=== PATIENT | male | born 1930 | race Caucasian/White ===

== ENCOUNTER 2017-01-05 13:43 | Inpatient (IN) | payer MEDICARE, OTHER ==
[~2017-01-05] VITALS: Ht 172.7 cm; Wt 80.0 kg
[2017-01-05] MEDS ORDERED: IOHEXOL 350 MG/ML 10 ML VIAL (for RAD DIAG) IVCONTRAST ONE (13:44)
[2017-01-05 14:00] VITALS: BP 142/69; PULSE 62; RESP 16; TEMP 98.4; O2SAT 98
[2017-01-05 15:20] LABS: AUTOMATED NEUTROPHIL # 4.4 TH/MM3 (1.8-7.7); BASOPHIL % 0.4 % (0.0-2.0); EOSINOPHIL % 0.6 % (0.0-4.0); HEMATOCRIT 33.1 % (39.0-51.0); HEMO FLAGS DIFF FINAL; LYMPH % 28.7 % (9.0-44.0); LYMPHOCYTE # 2.1 TH/MM3 (1.0-4.8); MEAN CELL VOLUME 104.3 FL (80.0-100.0); MEAN CORPUSCULAR HEMOGLOBIN 34.9 PG (27.0-34.0); MEAN CORPUSCULAR HGB CONC 33.5 % (32.0-36.0); MONO % 9.4 % (0.0-8.0); NEUT % 60.9 % (16.0-70.0); PLATELET COUNT 192 TH/MM3 (150-450); RED BLOOD COUNT 3.18 MIL/MM3 (4.50-5.90); RED CELL DISTRIBUTION WIDTH 13.6 % (11.6-17.2); WHITE BLOOD COUNT 7.3 TH/MM3 (4.0-11.0)
--- NOTE | 2017-01-05 15:22 | PD ---
Data Data Last Documented VS Vital Signs Date Time Temp Pulse Resp B/P (MAP) Pulse Ox O2 Delivery O2 Flow Rate FiO2 01/05/17 14:00 98.4 62 16 142/69 (93) 98 01/05/17 14:00 Room Air Orders Orders Complete Blood Count With Diff (01/05/17 14:05) Comprehensive Metabolic Panel (01/05/17 14:05) Lipase (01/05/17 14:05) Urinalysis - C+S If Indicated (01/05/17 14:05) Ct Abd/Pel W Iv Contrast(Rout) (01/05/17 14:05) Iv Access Insert/Monitor (01/05/17 14:05) Ecg Monitoring (01/05/17 14:05) Oximetry (01/05/17 14:05) Ed Poc Ultrasound (01/05/17 ) Labs Laboratory Tests Test 01/05/17 14:30 MDM Supervised Visit with GENEVIEVE: Yes Narrative Course Ultrasound-guided IV: 20-gauge IV was inserted in the right antecubital fossa under ultrasound guidance. Ultrasound confirmed placement. Ambar Estrada MD Jan 05, 2017 15:22
[2017-01-05 15:35] LABS: ALT (GPT) 28 U/L (12-78); ANION GAP 7 MEQ/L (5-15); AST (GOT) 22 U/L (15-37); BICARBONATE 24.4 MEQ/L (21.0-32.0); BLOOD UREA NITROGEN 12 MG/DL (7-18); CHLORIDE 105 MEQ/L (98-107); GLOMERULAR FILTRATION RATE 57 ML/MIN (>89); POTASSIUM 3.6 MEQ/L (3.5-5.1); SODIUM (NA) 136 MEQ/L (136-145)
[2017-01-05 15:37] LABS: ALKALINE PHOSPHATASE 58 U/L (45-117); TOTAL BILIRUBIN ADULT 0.3 MG/DL (0.2-1.0)
[2017-01-05] MEDS ORDERED: HYDR-3799 PO (15:40)
[2017-01-05] MEDS ORDERED: DOXE10CO2 PO (15:40)
[2017-01-05] MEDS ORDERED: ZOLO100T PO (15:40)
[2017-01-05] MEDS ORDERED: LACT10SO PO (15:40)
[2017-01-05] MEDS ORDERED: SIMV20TA PO (15:40)
[2017-01-05] MEDS ORDERED: DICY10 PO (15:40)
[2017-01-05] MEDS ORDERED: METO-309 PO (15:40)
[2017-01-05] MEDS ORDERED: COZA100T PO (15:40)
[2017-01-05] MEDS ORDERED: BUSP5TAB PO (15:40)
[2017-01-05] MEDS ORDERED: MELA10TA4 PO (15:40)
[2017-01-05] MEDS ORDERED: NU-I150C PO (15:40)
[2017-01-05] MEDS ORDERED: ISOS20TA PO (15:40)
[2017-01-05] MEDS ORDERED: PAXI10TA2 PO (15:40)
[2017-01-05] MEDS ORDERED: ALLO100T PO (15:40)
[2017-01-05] MEDS ORDERED: NORC5TAB PO (15:40)
[2017-01-05] MEDS ORDERED: METH2.5T PO (15:40)
[2017-01-05] MEDS ORDERED: OMEP20TA PO (15:40)
[2017-01-05] MEDS ORDERED: ACET-822 PO (15:40)
[2017-01-05] MEDS ORDERED: DULC5TAB PO (15:40)
[2017-01-05] MEDS ORDERED: LOPE-1 PO (15:40)
[2017-01-05] MEDS ORDERED: SIME125T PO (15:40)
[2017-01-05] MEDS ORDERED: DIVA250ER PO (15:40)
[2017-01-05] MEDS ORDERED: PLAV75TA29 PO (15:40)
[2017-01-05] MEDS ORDERED: LORA-474 PO ×2 (15:40)
[2017-01-05] MEDS ORDERED: NAME10TA PO (15:40)
[2017-01-05] MEDS ORDERED: MULTTAB67 PO (15:40)
[2017-01-05] MEDS ORDERED: ZANA2CAP PO (15:40)
[2017-01-05] MEDS ORDERED: PLAQ200T PO (15:41)
--- NOTE | 2017-01-05 15:54 | PD ---
HPI Chief Complaint: Abdominal Pain Time Seen by Provider: 14:08 Travel History International Travel<30 days: No Contact w/Intl Traveler<30days: No Traveled to known affect area: No History of Present Illness HPI Patient is a 86-year-old male presenting from the group home facility for evaluation of abdominal pain as well as for psychiatric evaluation. Patient reports a history of abdominal issues. He states he has not had a bowel movement in 4 days. Patient is also requesting to be evaluated by a psychiatrist due to worsening depression. Discussed with long-term nurse who said the patient gets irate and is very demanding. His nurse reports that one month ago he consumed a bottle of Tylenol that they were unaware that he had in his room. Patient reported to me that it was an attempt at suicide due to his pain. Patient's nurse states that he is obsessed with his bowels he will complain of constipation and then be given medication and minimal complaint of diarrhea. PFSH Past Medical History Anemia: Yes Arthritis: Yes (RA) Anxiety: Yes Depression: Yes Dementia: Yes Gastrointestinal Disorders: Yes (CONSTIPATION) GERD: Yes Gout: Yes Hypertension: Yes Musculoskeletal: Yes (WEAKNESS) Psychiatric: Yes (ATTEMPTED OD) Seizures: Yes (EPILEPSY ) Triglycerides - High: Yes Social History Alcohol Use: No Tobacco Use: No Substance Use: No Allergies-Medications (Allergen,Severity, Reaction): Coded Allergies: aspirin (Verified Allergy, Unknown, 01/05/17) atorvastatin (Verified Allergy, Unknown, 01/05/17) metronidazole (Verified Allergy, Unknown, 01/05/17) milk (Verified Allergy, Unknown, 01/05/17) quinapril (Verified Allergy, Unknown, 01/05/17) Reported Meds & Prescriptions Reported Meds & Active Scripts Active Reported Plaquenil (Hydroxychloroquine Sulfate) 200 Mg Tab 800 Mg PO DAILY Take with food Depakote ER (Divalproex Sodium) 250 Mg Hossein 250 Mg PO DAILY Simvastatin 20 Mg Tab 20 Mg PO HS Cozaar (Losartan Potassium) 100 Mg Tab 100 Mg PO DAILY Allopurinol 100 Mg Tab 100 Mg PO DAILY Plavix (Clopidogrel Bisulfate) 75 Mg Tab 75 Mg PO DAILY Isosorbide Mononitrate 20 Mg Tab 40 Mg PO DAILY Take 2 doses 7 hours apart. Methotrexate 2.5 Mg Tab 7.5 Mg PO TUESDAY Doxepin Liq (Doxepin HCl) 10 Mg/Ml Conc 5 Mg PO HS Tylenol Extra Strength (Acetaminophen) 500 Mg Tablet 500 Mg PO Q6HR PRN Lopressor (Metoprolol Tartrate) 50 Mg Tab 50 Mg PO BID Ativan (Lorazepam) 1 Mg Tab 2 Mg PO HS Ativan (Lorazepam) 1 Mg Tab 1 Mg PO BID Melatonin 10 Mg Tablet 10 Mg PO HS Imodium A-D (Loperamide HCl) 2 Mg Capsule 2 Mg PO Q8HR PRN Gas-X (Simethicone) 125 Mg Tab.chew 125 Mg PO Q8HR PRN Omeprazole 20 Mg Tab 20 Mg PO DAILY Lactulose Liq (Lactulose) 10 Gm/15 Ml Soln 30 Ml PO BID Nu-Iron 150 (Polysaccharide Iron Complex) 150 Mg Iron Cap 150 Mg PO DAILY Zanaflex (Tizanidine HCl) 2 Mg Cap 2 Mg PO BID Bentyl (Dicyclomine HCl) 10 Mg Cap 20 Mg PO QID Namenda (Memantine) 10 Mg Tab 10 Mg PO BID Dulcolax DR (Bisacodyl) 5 Mg Tabdr 5 Mg PO EVERY OTHER DAY Buspirone (Buspirone HCl) 5 Mg Tab 5 Mg PO QID Zoloft (Sertraline HCl) 100 Mg Tab 100 Mg PO DAILY Hydralazine HCl 25 Mg Tablet 25 Mg PO TID Paxil (Paroxetine HCl) 10 Mg Tab 10 Mg PO DAILY Multiple Vitamin 1 Tab 1 Tab PO DAILY [place] (Hydrocodone-Acetaminophen) 5-325 mg Tab 1 Tab PO BID Review of Systems Except as stated in HPI: all other systems reviewed are Neg Gastrointestinal: Positive: Abdominal Pain, Constipation Psychiatric: Positive: Depression, Suicidal Ideations Physical Exam Narrative GENERAL: Well-developed, well-nourished, alert male. Resting comfortably in no acute distress. SKIN: Warm and dry. HEAD: Atraumatic. Normocephalic. EYES: Pupils equal and round. No scleral icterus. No injection or drainage. ENT: No nasal bleeding or discharge. Mucous membranes pink and moist. NECK: Trachea midline. No JVD. CARDIOVASCULAR: Regular rate and rhythm. RESPIRATORY: No accessory muscle use. Clear to auscultation. Breath sounds equal bilaterally. GASTROINTESTINAL: Abdomen soft, mildly tender in right upper and lower quadrants , nondistended. Hepatic and splenic margins not palpable. No rebound, no guarding. Positive bowel sounds. MUSCULOSKELETAL: Extremities without clubbing, cyanosis, or edema. No obvious deformities. NEUROLOGICAL: Awake and alert. No obvious cranial nerve deficits. Motor grossly within normal limits. Five out of 5 muscle strength in the arms and legs. Normal speech. PSYCHIATRIC: Appropriate mood and affect; insight and judgment normal. Data Data Last Documented VS Vital Signs Date Time Temp Pulse Resp B/P (MAP) Pulse Ox O2 Delivery O2 Flow Rate FiO2 01/05/17 14:00 98.4 62 16 142/69 (93) 98 01/05/17 14:00 Room Air Orders Orders Complete Blood Count With Diff (01/05/17 14:05) Comprehensive Metabolic Panel (01/05/17 14:05) Lipase (01/05/17 14:05) Urinalysis - C+S If Indicated (01/05/17 14:05) Ct Abd/Pel W Iv Contrast(Rout) (01/05/17 14:05) Iv Access Insert/Monitor (01/05/17 14:05) Ecg Monitoring (01/05/17 14:05) Oximetry (01/05/17 14:05) Ed Poc Ultrasound (01/05/17 ) Psych Screen (01/05/17 15:50) Iohexol 350 Inj (Omnipaque 350 Inj) (01/05/17 13:44) Diet Heart Healthy (01/05/17 Dinner) Labs Laboratory Tests Test 01/05/17 14:30 01/05/17 17:00 White Blood Count 7.3 TH/MM3 Red Blood Count 3.18 MIL/MM3 Hemoglobin 11.1 GM/DL Hematocrit 33.1 % Mean Corpuscular Volume 104.3 FL Mean Corpuscular Hemoglobin 34.9 PG Mean Corpuscular Hemoglobin Concent 33.5 % Red Cell Distribution Width 13.6 % Platelet Count 192 TH/MM3 Mean Platelet Volume 7.6 FL Neutrophils (%) (Auto) 60.9 % Lymphocytes (%) (Auto) 28.7 % Monocytes (%) (Auto) 9.4 % Eosinophils (%) (Auto) 0.6 % Basophils (%) (Auto) 0.4 % Neutrophils # (Auto) 4.4 TH/MM3 Lymphocytes # (Auto) 2.1 TH/MM3 Monocytes # (Auto) 0.7 TH/MM3 Eosinophils # (Auto) 0.0 TH/MM3 Basophils # (Auto) 0.0 TH/MM3 CBC Comment DIFF FINAL Differential Comment Blood Urea Nitrogen 12 MG/DL Creatinine 1.21 MG/DL Random Glucose 98 MG/DL Total Protein 6.8 GM/DL Albumin 3.3 GM/DL Calcium Level 8.8 MG/DL Alkaline Phosphatase 58 U/L Aspartate Amino Transf (AST/SGOT) 22 U/L Alanine Aminotransferase (ALT/SGPT) 28 U/L Total Bilirubin 0.3 MG/DL Sodium Level 136 MEQ/L Potassium Level 3.6 MEQ/L Chloride Level 105 MEQ/L Carbon Dioxide Level 24.4 MEQ/L Anion Gap 7 MEQ/L Estimat Glomerular Filtration Rate 57 ML/MIN Lipase 210 U/L Urine Color LIGHT-YELLOW Urine Turbidity CLEAR Urine pH 6.0 Urine Specific [place] 1.006 Urine Protein NEG mg/dL Urine Glucose (UA) NEG mg/dL Urine Ketones NEG mg/dL Urine Occult Blood NEG Urine Nitrite NEG Urine Bilirubin NEG Urine Urobilinogen LESS THAN 2.0 MG/DL Urine Leukocyte Esterase NEG Urine RBC 1 /hpf Urine WBC LESS THAN 1 /hpf Microscopic Urinalysis Comment CULT NOT INDICATED MDM Medical Decision Making Medical Screen Exam Complete: Yes Emergency Medical Condition: Yes Interpretation(s) Last Impressions Abdomen/Pelvis CT 01/05/17 1405 Signed Impressions: Service Date/Time: Thursday, January 05, 2017 16:01 - CONCLUSION: 1. 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 2. Bilateral renal cortical cysts. One of the cysts in the lower pole of the left kidney contains a fluid/fluid level possibly representing a hemorrhagic or proteinaceous component. 3. Bilateral inguinal and umbilical hernias all contain fat. 4. Postsurgical changes with findings of prior prostatectomy and pelvic sidewall node dissection. Surgical clips in the region of the adductor muscles of the right thigh. 5. Hepatic cysts . John Bergeron MD Laboratory Tests Test 01/05/17 14:30 01/05/17 17:00 White Blood Count 7.3 TH/MM3 Red Blood Count 3.18 MIL/MM3 Hemoglobin 11.1 GM/DL Hematocrit 33.1 % Mean Corpuscular Volume 104.3 FL Mean Corpuscular Hemoglobin 34.9 PG Mean Corpuscular Hemoglobin Concent 33.5 % Red Cell Distribution Width 13.6 % Platelet Count 192 TH/MM3 Mean Platelet Volume 7.6 FL Neutrophils (%) (Auto) 60.9 % Lymphocytes (%) (Auto) 28.7 % Monocytes (%) (Auto) 9.4 % Eosinophils (%) (Auto) 0.6 % Basophils (%) (Auto) 0.4 % Neutrophils # (Auto) 4.4 TH/MM3 Lymphocytes # (Auto) 2.1 TH/MM3 Monocytes # (Auto) 0.7 TH/MM3 Eosinophils # (Auto) 0.0 TH/MM3 Basophils # (Auto) 0.0 TH/MM3 CBC Comment DIFF FINAL Differential Comment Blood Urea Nitrogen 12 MG/DL Creatinine 1.21 MG/DL Random Glucose 98 MG/DL Total Protein 6.8 GM/DL Albumin 3.3 GM/DL Calcium Level 8.8 MG/DL Alkaline Phosphatase 58 U/L Aspartate Amino Transf (AST/SGOT) 22 U/L Alanine Aminotransferase (ALT/SGPT) 28 U/L Total Bilirubin 0.3 MG/DL Sodium Level 136 MEQ/L Potassium Level 3.6 MEQ/L Chloride Level 105 MEQ/L Carbon Dioxide Level 24.4 MEQ/L Anion Gap 7 MEQ/L Estimat Glomerular Filtration Rate 57 ML/MIN Lipase 210 U/L Urine Color LIGHT-YELLOW Urine Turbidity CLEAR Urine pH 6.0 Urine Specific [place] 1.006 Urine Protein NEG mg/dL Urine Glucose (UA) NEG mg/dL Urine Ketones NEG mg/dL Urine Occult Blood NEG Urine Nitrite NEG Urine Bilirubin NEG Urine Urobilinogen LESS THAN 2.0 MG/DL Urine Leukocyte Esterase NEG Urine RBC 1 /hpf Urine WBC LESS THAN 1 /hpf Microscopic Urinalysis Comment CULT NOT INDICATED Vital Signs Date Time Temp Pulse Resp B/P (MAP) Pulse Ox O2 Delivery O2 Flow Rate FiO2 01/05/17 14:00 98.4 62 16 142/69 (93) 98 01/05/17 14:00 16 01/05/17 14:00 98 Room Air Differential Diagnosis Mood disorder versus dementia versus obstruction versus constipation versus depression versus metabolic abnormality versus other Narrative Course Patient is a 86-year-old male presenting for abdominal pain and for psychiatric evaluation secondary to depression and suicidal ideation. Vital signs are stable, labs and imaging ordered and pending. Mental health screening discussed with the patient. Psychiatric screen ordered. CT scan abdomen and pelvis shows diverticulosis the descending and sigmoid colon without diverticulitis. Bilateral renal cortical cysts. One of the systems lower pole of the left kidney contains a fluid fluid level possibly represent a hemorrhagic or proteinaceous component. Abdomen reviewed, no acute findings identified. Urinalysis is unremarkable. Patient will be medically cleared for psychiatric evaluation at this time. Diagnosis Primary Impression: Medical clearance for psychiatric admission Additional Impression: Abdominal pain Qualified Codes: R10.9 - Unspecified abdominal pain Condition: Stable Livier Moreno Jan 05, 2017 15:54
--- NOTE | 2017-01-05 16:36 | RADRPT ---
EXAM DATE/TIME: 01/05/2017 16:01 [facility] COMPARISON: No previous studies available for comparison. INDICATIONS : Abdomen pain,constipation. IV CONTRAST: 94 cc Omnipaque 350 (iohexol) IV ORAL CONTRAST: No oral contrast ingested. RADIATION DOSE: 10.03 CTDIvol (mGy) MEDICAL HISTORY : Seizures. Hyperthyroidism. SURGICAL HISTORY : None. ENCOUNTER: Initial ACUITY: 4 - 6 days PAIN SCALE: 4/10 LOCATION: Abdomen TECHNIQUE: Volumetric scanning of the abdomen and pelvis was performed. Using automated exposure control and ad justment of the mA and/or kV according to patient size, radiation dose was kept as low as reasonably achievable to obtain optimal diagnostic quality images. DICOM format image data is available electro nically for review and comparison. FINDINGS: LOWER LUNGS: The visualized lower lungs are clear. LIVER: There are 2 low density areas anteriorly in the liver characteristic of benign cysts. There is no di lation of the biliary tree. No calcified gallstones. SPLEEN: Normal size without lesion. PANCREAS: Within normal limits. KIDNEYS: Multiple bilateral renal cortical cysts. Fluid fluid level on one of the lower pole cyst on the left may represent a proteinaceous or hemorrhagic component. No hydronephrosis ADRENAL GLANDS: Within normal limits. VASCULAR: There is no aortic aneurysm. BOWEL/MESENTERY: The stomach, small bowel, and colon demonstrate no acute abnormality. There is no free intraperitone al air or fluid. 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 BLADDER: No wall thickening or mass. REPRODUCTIVE: Findings of prior prostatectomy with pelvic sidewall dissection. INGUINAL: Small bilateral inguinal hernias only contain fat. It measured 2.2 cm on the right and 2.5 cm on the left MUSCULOSKELETAL: Dextroscoliosis of the lumbar spine with associated degenerative changes. Surgical clips in the regio n of the adductor muscles of the right thigh. CONCLUSION: 1. 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 2. Bilateral renal cortical cysts. One of the cysts in the lower pole of the left kidney contains a f luid/fluid level possibly representing a hemorrhagic or proteinaceous component. 3. Bilateral inguinal and umbilical hernias all contain fat. 4. Postsurgical changes with findings of prior prostatectomy and pelvic sidewall node dissection. Matilde gical clips in the region of the adductor muscles of the right thigh. 5. Hepatic cysts . John Bergeron MD on January 05, 2017 at 16:27 Board Certified Radiologist. This report was verified electronically.
[2017-01-05 17:21] LABS: BLOOD, URINE NEG (NEG); COMMENT (UR) CULT NOT INDICATED; CULTURE IF INDICATED CULT NOT INDICATED; GLUCOSE,URINE NEG (NEG); KETONE, URINE NEG (NEG); NITRITE,URINE NEG (NEG); URINE COLOR LIGHT-YELLOW (YELLW/STRAW)
[2017-01-05] MEDS ORDERED: ACETAMINOPHEN 325 MG TAB PO ONE (18:30)
[2017-01-05] MEDS ORDERED: IBUPROFEN 600 MG TAB PO ONE (22:45)
[2017-01-05] MEDS ORDERED: LORazepam 1 MG TAB PO ONE (23:15)
[2017-01-06] MEDS ORDERED: ACETAMINOPHEN 325 MG TAB PO ONE (01:45)
[2017-01-06] MEDS ORDERED: LORazepam 1 MG TAB PO ONE (01:45)
[2017-01-06] MEDS ORDERED: ALUMINUM/MAGNESIUM/SIMETH 30 ML CUP PO PRN (02:00)
[2017-01-06] MEDS ORDERED: MAGNESIUM HYDROXIDE SUSP 30 ML CUP PO PRN (02:00)
[2017-01-06] MEDS ORDERED: LOPERAMIDE HCL 2 MG CAP PO PRN ×2 (02:15→09:15)
[2017-01-06] MEDS ORDERED: ACETAMINOPHEN 500 MG CPLT PO PRN ×2 (02:15→09:15)
[2017-01-06] MEDS ORDERED: SIMETHICONE 125 MG CHEWABLE TAB PO PRN ×2 (02:30→09:15)
[2017-01-06 03:05] VITALS: BP 143/79; PULSE 65; RESP 20; TEMP 97.7; O2SAT 95
[2017-01-06] MEDS: DICYCLOMINE HCL 20 MG TAB PO SCH ×4 (08:35→21:37)
[2017-01-06] MEDS: ALLOPURINOL 100 MG TAB PO SCH (08:35)
[2017-01-06] MEDS: HYDROXYCHLOROQUINE SULFATE 200 MG TAB PO SCH (08:35)
[2017-01-06] MEDS: MEMANTINE HCL 10 MG TAB PO SCH ×2 (08:35→21:37)
[2017-01-06] MEDS: PANTOPRAZOLE SOD 20 MG DELAYED RELEASE TAB PO SCH (08:36)
[2017-01-06] MEDS: LOSARTAN 50 MG TAB PO SCH (08:36)
[2017-01-06] MEDS: ACETAMINOPHEN/HYDROcodone 325 MG/5 MG TAB PO SCH ×2 (08:48→21:36)
[2017-01-06] MEDS: MULTIVITAMIN TAB PO SCH (09:00)
[2017-01-06] MEDS: POLYSACCHARIDE IRON COMPLEX 150 MG CAP PO SCH (09:00)
[2017-01-06] MEDS ORDERED: SERTRALINE HCL 100 MG TAB PO SCH (09:00)
[2017-01-06] MEDS: METOPROLOL TARTRATE 50 MG TAB PO SCH ×2 (09:00→21:00)
[2017-01-06] MEDS: LACTULOSE SYRUP 20 GM/30 ML CUP PO SCH ×2 (09:00→21:36)
[2017-01-06] MEDS: hydrALAZINE HCL 25 MG TAB PO SCH ×3 (09:00→18:00)
[2017-01-06] MEDS: LORazepam 1 MG TAB PO SCH ×2 (09:00→13:38)
[2017-01-06] MEDS: CLOPIDOGREL 75 MG TAB PO SCH (09:00)
--- NOTE | 2017-01-06 09:27 | PD.CONS ---
[facility] Unknown Diagnoses: History of Present Illness Mr. Willoughby is an 86-year-old male. He is currently alert and oriented 1 and history is difficult to obtain. She does not know the reason he is here but it is reported that he is here secondary to depression. His primary complaints to me R weakness and recurrent constipation. We discussed treatments including PT and Colace. He is on an as needed laxative already at baseline. Pertinent chronic medical conditions are rheumatoid arthritis, gout, hypertension, coronary artery disease/angina, and seizure disorder. Treatments for these conditions are reviewed and treatments are in place. He has no complaints of chest pain. He cannot recall his last seizure. No gallop or return arthritis flareups. Review of Systems Constitutional: DENIES: Diaphoretic episodes, Fatigue, Fever, Weight gain, Weight loss, Chills, Dizziness, Change in appetite, Night Sweats Respiratory: DENIES: Apneas, Cough, Snoring, Wheezing, Hemoptysis, Sputum production, Shortness of breath Cardiovascular: DENIES: Chest pain, Palpitations, Syncope, Dyspnea on Exertion , PND, Lower Extremity Edema, Orthopnea, Claudication Musculoskeletal: DENIES: Joint pain, Muscle aches, Stiffness, Joint Swelling, Back pain, Neck pain Integumentary: DENIES: Abnormal pigmentation, Nail changes, Pruritus, Rash Hematologic/lymphatic: DENIES: Bruising, Lymphadenopathy Immunologic/allergic: DENIES: Eczema, Urticaria Neurologic: DENIES: Abnormal gait, Headache, Localized weakness, Paresthesias, Seizures, Speech Problems, Tremor, Poor Balance Past Family Social History Allergies: Coded Allergies: aspirin (Verified Allergy, Unknown, 01/05/17) atorvastatin (Verified Allergy, Unknown, 01/05/17) metronidazole (Verified Allergy, Unknown, 01/05/17) milk (Verified Allergy, Unknown, 01/05/17) quinapril (Verified Allergy, Unknown, 01/05/17) Past Medical History Chronic Anemia Rheumatoid Arthritis General Anxiety Disorder Depression Constipation GERD Gout HTN General Weakness Hyperlipidemia Seizure Disorder Hx of Angina Chronic umbilical hernia Past Surgical History Prostate surgery Reported Medications Reported Meds & Active Scripts Active Reported Plaquenil (Hydroxychloroquine Sulfate) 200 Mg Tab 800 Mg PO DAILY Take with food Depakote ER (Divalproex Sodium) 250 Mg Hossein 250 Mg PO DAILY Simvastatin 20 Mg Tab 20 Mg PO HS Cozaar (Losartan Potassium) 100 Mg Tab 100 Mg PO DAILY Plavix (Clopidogrel Bisulfate) 75 Mg Tab 75 Mg PO DAILY Isosorbide Mononitrate 20 Mg Tab 40 Mg PO DAILY Take 2 doses 7 hours apart. Methotrexate 2.5 Mg Tab 7.5 Mg PO TUESDAY Doxepin Liq (Doxepin HCl) 10 Mg/Ml Conc 5 Mg PO HS Tylenol Extra Strength (Acetaminophen) 500 Mg Tablet 500 Mg PO Q6HR PRN Lopressor (Metoprolol Tartrate) 50 Mg Tab 50 Mg PO BID Ativan (Lorazepam) 1 Mg Tab 2 Mg PO HS Ativan (Lorazepam) 1 Mg Tab 1 Mg PO BID Melatonin 10 Mg Tablet 10 Mg PO HS Imodium A-D (Loperamide HCl) 2 Mg Capsule 2 Mg PO Q8HR PRN Gas-X (Simethicone) 125 Mg Tab.chew 125 Mg PO Q8HR PRN Omeprazole 20 Mg Tab 20 Mg PO DAILY Lactulose Liq (Lactulose) 10 Gm/15 Ml Soln 30 Ml PO BID Nu-Iron 150 (Polysaccharide Iron Complex) 150 Mg Iron Cap 150 Mg PO DAILY Zanaflex (Tizanidine HCl) 2 Mg Cap 2 Mg PO BID Bentyl (Dicyclomine HCl) 10 Mg Cap 20 Mg PO QID Namenda (Memantine) 10 Mg Tab 10 Mg PO BID Dulcolax DR (Bisacodyl) 5 Mg Tabdr 5 Mg PO EVERY OTHER DAY Buspirone (Buspirone HCl) 5 Mg Tab 5 Mg PO QID Zoloft (Sertraline HCl) 100 Mg Tab 100 Mg PO DAILY Hydralazine HCl 25 Mg Tablet 25 Mg PO TID Paxil (Paroxetine HCl) 10 Mg Tab 10 Mg PO DAILY Multiple Vitamin 1 Tab 1 Tab PO DAILY [place] (Hydrocodone-Acetaminophen) 5-325 mg Tab 1 Tab PO BID Active Ordered Medications Administered Medications Medications (Trade) Dose Ordered Sig/Leanna Route PRN Reason Start Time Stop Time Status Last Admin Dose Admin Clopidogrel Bisulfate (Plavix) 75 mg DAILY PO 01/06/17 09:00 01/06/17 09:00 Allopurinol (Zyloprim) 100 mg DAILY PO 01/06/17 09:00 01/06/17 08:35 Losartan Potassium (Cozaar) 100 mg DAILY PO 01/06/17 09:00 01/06/17 08:36 Metoprolol Tartrate (Lopressor) 50 mg BID PO 01/06/17 09:00 01/06/17 09:00 Tizanidine HCl (Zanaflex) 2 mg BID PO 01/06/17 09:00 01/06/17 09:00 Polysaccharide Iron Complex (Nu-Iron) 150 mg DAILY PO 01/06/17 09:00 01/06/17 09:00 Lactulose (Lactulose Liq) 30 ml BID PO 01/06/17 09:00 01/06/17 09:00 Pantoprazole Sodium (Protonix) 20 mg DAILY PO 01/06/17 09:00 01/06/17 08:36 Sertraline HCl (Zoloft) 100 mg DAILY PO 01/06/17 09:00 01/06/17 08:35 Memantine (Namenda) 10 mg BID PO 01/06/17 09:00 01/06/17 08:35 Dicyclomine HCl (Bentyl) 20 mg QID PO 01/06/17 09:00 01/06/17 08:35 Hydroxychloroquine Sulfate (Plaquenil) 200 mg DAILY PO 01/06/17 09:00 01/06/17 08:35 Acetaminophen/ Hydrocodone Bitart ([place] 5-325 Mg) 1 tab BID PO 01/06/17 09:00 01/06/17 08:48 Multivitamins (Theragran) 1 tab DAILY PO 01/06/17 09:00 01/06/17 09:00 Hydralazine HCl (Apresoline) 25 mg TID PO 01/06/17 09:00 01/06/17 09:00 Lorazepam (Ativan) 1 mg DAILY@0900,1400 PO 01/06/17 09:00 01/06/17 09:00 Family History Unable to obtain secondary to patient's confusion Social History No history of smoking No history of alcohol abuse No history of illicit drug abuse Physical Exam Vital Signs Vital Signs Date Time Temp Pulse Resp B/P (MAP) Pulse Ox O2 Delivery O2 Flow Rate FiO2 01/06/17 03:05 97.7 65 20 143/79 (100) 95 01/05/17 14:00 98.4 62 16 142/69 (93) 98 01/05/17 14:00 16 01/05/17 14:00 98 Room Air Physical Exam GENERAL: NAD, A&Ox1 HEAD: Normocephalic. NECK: Supple, trachea midline. No lymphadenopathy. EYES: No scleral icterus. No injection or drainage. CARDIOVASCULAR: Regular rate and rhythm without murmurs, gallops, or rubs. RESPIRATORY: Breath sounds equal bilaterally. No accessory muscle use. GASTROINTESTINAL: Abdomen soft, non-tender, nondistended. Umbilical hernia. MUSCULOSKELETAL: No cyanosis, or edema. SKIN: Warm and dry. NEURO: No focal neurological deficitis. Laboratory Laboratory Tests Test 01/05/17 14:30 01/05/17 17:00 White Blood Count 7.3 Red Blood Count 3.18 Hemoglobin 11.1 Hematocrit 33.1 Mean Corpuscular Volume 104.3 Mean Corpuscular Hemoglobin 34.9 Mean Corpuscular Hemoglobin Concent 33.5 Red Cell Distribution Width 13.6 Platelet Count 192 Mean Platelet Volume 7.6 Neutrophils (%) (Auto) 60.9 Lymphocytes (%) (Auto) 28.7 Monocytes (%) (Auto) 9.4 Eosinophils (%) (Auto) 0.6 Basophils (%) (Auto) 0.4 Neutrophils # (Auto) 4.4 Lymphocytes # (Auto) 2.1 Monocytes # (Auto) 0.7 Eosinophils # (Auto) 0.0 Basophils # (Auto) 0.0 CBC Comment DIFF FINAL Differential Comment Blood Urea Nitrogen 12 Creatinine 1.21 Random Glucose 98 Total Protein 6.8 Albumin 3.3 Calcium Level 8.8 Alkaline Phosphatase 58 Aspartate Amino Transf (AST/SGOT) 22 Alanine Aminotransferase (ALT/SGPT) 28 Total Bilirubin 0.3 Sodium Level 136 Potassium Level 3.6 Chloride Level 105 Carbon Dioxide Level 24.4 Anion Gap 7 Estimat Glomerular Filtration Rate 57 Lipase 210 Urine Color LIGHT-YELLOW Urine Turbidity CLEAR Urine pH 6.0 Urine Specific [place] 1.006 Urine Protein NEG Urine Glucose (UA) NEG Urine Ketones NEG Urine Occult Blood NEG Urine Nitrite NEG Urine Bilirubin NEG Urine Urobilinogen LESS THAN 2.0 Urine Leukocyte Esterase NEG Urine RBC 1 Urine WBC LESS THAN 1 Microscopic Urinalysis Comment CULT NOT INDICATED Result Diagram: 01/05/17 1430 01/05/17 1430 Assessment and Plan Problem List: (1) Depression ICD Code: F32.9 - Major depressive disorder, single episode, unspecified Assessment and Plan Assesment and Plan 86 year old male admitted with depression General Anxiety Disorder Depression Management per Psychiatry Service Chronic Anemia No acute concerns, based on CBC Mild No need to follow CBC Rheumatoid Arthritis Continue Methotrexate at baseline dosing Constipation Continue PRN Laxative Colace twice a day GERD Continue PPI Gout Continue allopurinol HTN Controlled No change to baseline treatments Follow BP intermittantly Goal at age 86 is an average of 150mmHg systolic or less General Weakness PT Hyperlipidemia Continue Statin Follow as an outpatient Seizure Disorder No recent seizures Continue Depakote Follow clinically for any seizure activity Umbilical hernia Stable Follow as an outpatient Hx of Angina No active chest pain Continue daily Imdur Discharge planning Medications reviewed Patient's medical conditions are adequately treated Medically stable for discharge once psychiatric conditions are treated and stable We'll sign off service at this time and resume medical care if needed in the future, during this stay Geraldo Marina MD Jan 06, 2017 09:27
[2017-01-06] MEDS ORDERED: DOCUSATE SODIUM 100 MG CAP PO ONE (11:15)
[2017-01-06 12:16] VITALS: BP 129/60; PULSE 51
[2017-01-06] MEDS: busPIRone HCL 5 MG TAB PO SCH ×3 (12:48→21:37)
[2017-01-06] MEDS ORDERED: DICYCLOMINE HCL 10 MG CAP PO SCH (13:00)
[2017-01-06] MEDS ORDERED: hydrALAZINE HCL 25 MG TAB PO SCH (13:00)
--- NOTE | 2017-01-06 13:51 | HHI.HP ---
Provisional Diagnosis Admission Date Jan 06, 2017 at 01:30 [place] I. 1. Mixed anxiety disorder Rule-out component of PTSD 2. Depressive disorder [place] II. Deferred Certification of Person's Competence To Provide Express and Informed Consent I have personally examined Edgar Willoughby , a person being served at [facility] on, Jan 06, 2017 13:51. Express and informed consent means consent voluntarily given in writing, by a competent person, after sufficient explanation and disclosure of the subject matter involved to enable the person to make a knowing and willful decision without any element of force, fraud, deceit, duress, or other form of constraint or coercion. This person is 18 years of age or older, is not now known to be incompetent to consent to treatment with a guardian advocate, and does not have a health care surrogate or proxy currently making medical treatment decisions. I have found this person to be one of the following: [x] Competent to provide express and informed consent, as defined above, for voluntary admission to this facility and is competent to provide express and informed consent for treatment. He/she has the consistent capacity to make well reasoned, willful, and knowing decisions concerning his or her medical or mental health treatment. The person fully and consistently understands the purpose of the admission for examination/placement and is fully capable of personally exercising all rights assured under [place] [] Incompetent to provide express and informed consent to voluntary admission, and this is incompetent to provide express and informed consent to treatment. The person must be transferred to involuntary status and a petition for a guardian advocate filed with the Circuit Court. [] Refusing to provide express and informed consent to voluntary admission but is competent to provide express and informed consent for treatment. The person must be discharged or transferred to involuntary status. Form shall be completed within 24 hours of a person's arrival at the receiving facility and filed in the clinical record of each person: 1. Admitted on a voluntary basis 2. Permitted to provide express and informed consent to his/her own treatment 3. Allowed to transfer from involuntary to voluntary status 4. Prior to permitting a person to consent to his or her own treatment after having been previously found incompetent to consent to treatment. History of Present Illness Capacity: Has Capacity HPI Mr. Willoughby is 86 year-old male with a reported history of anxiety disorder who presented to the ED on a voluntary basis for psychiatric evaluation. Reviewing the electronic medical record, it appears this is patient's first visit to [facility]. Patient seen and examined with nurse. Chart reviewed. Case discussed with nursing staff. On my examination today, the patient complains chiefly of anxiety. He says that this anxiety disorder had its onset following his return from [place]. He has seen a psychiatrist in the past but is not currently under psychiatric care. He endorses generalized anxiety with episodes of what sound like panic with associated somatic symptoms such as chest pain. He also reports that his sleep is disturbed by nightmares of his experiences and work. He describes phenomenon that could represent daytime flashbacks to his experiences. He also reports that he awakens in the morning and is unable to move his bowels and bladder, and he thinks this may be related to his anxiousness overnight. Mood is somewhat depressed, although he does not identify this as his primary problem, nor does he describe a lot of depressive symptoms otherwise. He denies any suicidal or homicidal ideation. There is documentation that he took a quantity of Tylenol about a month ago, and when I asked the patient about this, he denies that it was a suicide attempt. Rather, he says that he was experiencing abdominal pain, as he sometimes does in the middle of the night when he is feeling especially anxious. He says that he pressed his nurses button but no one responded, and so he took a handful of Tylenol that he had in his room. No hypomanic or manic symptoms. No psychotic symptoms. The remainder of the psychiatric ROS is negative. Past psychiatric history: The patient reports a history of anxiety disorder. He does allude to a history of psychiatric admissions in the past but cannot provide any details about where or when. He denies a history of suicide attempts. Reviewing the medication reconciliation form, it appears patient's home psychotropics include Zoloft, Paxil, BuSpar, doxepin, Namenda and melatonin as well as scheduled Ativan. Family history: The patient denies a family history of mental illness. Chemical dependency history: The patient denies any abuse of drugs or alcohol. Social history: The patient reports that he lives in an assisted living facility. He is an [employer] having served in [place] and [place]. He is from his . He is originally from [place]. Review of Systems ROS Limitations: Poor Historian Except as stated in HPI: all other systems reviewed are Neg Past Psych History Psychological trauma history trauma Violence risk - others (6 mos) Low imminent risk. No homicidal ideation. Violence risk - self (6 mos) Lower imminent risk. Denies suicidal ideation. No history of suicide attempts. Substance Abuse History Drugs/Alcohol past 12 months See above Past Family Social History Coded Allergies: aspirin (Verified Allergy, Unknown, 01/05/17) atorvastatin (Verified Allergy, Unknown, 01/05/17) metronidazole (Verified Allergy, Unknown, 01/05/17) milk (Verified Allergy, Unknown, 01/05/17) quinapril (Verified Allergy, Unknown, 01/05/17) Past Medical History See electronic medical record Reported Medications Hydroxychloroquine (Plaquenil) 200 Mg Tab, 800 MG PO DAILY, #30 TAB 0 Refills Take with food 01/05/17 Divalproex ER (Depakote ER) 250 Mg Hossein, 250 MG PO DAILY for Control Seizures, #30 TAB 0 Refills 01/05/17 Simvastatin (Simvastatin) 20 Mg Tab, 20 MG PO HS for Cholesterol Management, # 30 TAB 0 Refills 01/05/17 Losartan (Cozaar) 100 Mg Tab, 100 MG PO DAILY for Blood Pressure Management, # 30 TAB 0 Refills 01/05/17 Allopurinol (Allopurinol) 100 Mg Tab, 100 MG PO DAILY for Gout, #30 TAB 0 Refills 01/05/17 Clopidogrel (Plavix) 75 Mg Tab, 75 MG PO DAILY for Blood Clot Prevention, #30 TAB 0 Refills 01/05/17 Isosorbide Mononitrate (Isosorbide Mononitrate) 20 Mg Tab, 40 MG PO DAILY for Prevent Chest Pain, #60 TAB 0 Refills Take 2 doses 7 hours apart. 01/05/17 Methotrexate (Methotrexate) 2.5 Mg Tab, 7.5 MG PO TUESDAY, TAB 0 Refills 01/05/17 Doxepin Liq (Doxepin Liq) 10 Mg/Ml Conc, 5 MG PO HS for Anxiety, ML 0 Refills 01/05/17 Acetaminophen (Tylenol Extra Strength) 500 Mg Tablet, 500 MG PO Q6HR Y for MILD PAIN/TEMP ELEVATION 01/05/17 Metoprolol Tartrate (Lopressor) 50 Mg Tab, 50 MG PO BID, #60 TAB 0 Refills 01/05/17 Lorazepam (Ativan) 1 Mg Tab, 2 MG PO HS for Anxiety, TAB 0 Refills 01/05/17 Lorazepam (Ativan) 1 Mg Tab, 1 MG PO BID for Anxiety, TAB 0 Refills 01/05/17 Melatonin (Melatonin) 10 Mg Tablet, 10 MG PO HS 01/05/17 Loperamide (Imodium A-D) 2 Mg Capsule, 2 MG PO Q8HR Y for DIARRHEA, #30 CAP 0 Refills 01/05/17 Simethicone (Gas-X) 125 Mg Tab.chew, 125 MG PO Q8HR Y for GAS RETENTION 01/05/17 Omeprazole (Omeprazole) 20 Mg Tab, 20 MG PO DAILY for Reflux, #30 TAB 0 Refills 01/05/17 Lactulose Liq (Lactulose Liq) 10 Gm/15 Ml Soln, 30 ML PO BID, ML 0 Refills 01/05/17 Polysaccharide Iron Complex (Nu-Iron 150) 150 Mg Iron Cap, 150 MG PO DAILY for Nutritional Supplement, #30 CAP 0 Refills 01/05/17 Tizanidine (Zanaflex) 2 Mg Cap, 2 MG PO BID for Muscle Spasm, CAP 0 Refills 01/05/17 Dicyclomine (Bentyl) 10 Mg Cap, 20 MG PO QID for Bowel Management, CAP 0 Refills 01/05/17 Memantine (Namenda) 10 Mg Tab, 10 MG PO BID for Alzheimer Disease, #30 TAB 0 Refills 01/05/[address] (Dulcolax DR) 5 Mg Tabdr, 5 MG PO EVERY OTHER DAY, #30 TAB 0 Refills 01/05/17 Buspirone (Buspirone) 5 Mg Tab, 5 MG PO QID for Anxiety, TAB 0 Refills 01/05/17 Sertraline (Zoloft) 100 Mg Tab, 100 MG PO DAILY, #30 TAB 0 Refills 01/05/17 Hydralazine HCl (Hydralazine HCl) 25 Mg Tablet, 25 MG PO TID for Blood Pressure Management, #90 TAB 0 Refills 01/05/17 Paroxetine (Paxil) 10 Mg Tab, 10 MG PO DAILY, #30 TAB 0 Refills 01/05/17 Multiple Vitamin (Multiple Vitamin) 1 Tab, 1 TAB PO DAILY for Nutritional Supplement, TAB 0 Refills 01/05/17 Hydrocodone-Acetaminophen ([place]) 5-325 mg Tab, 1 TAB PO BID, TAB 0 Refills 01/05/17 Current Medications Medications (Trade) Dose Ordered Sig/Leanna Route Start Time Stop Time Status Last Admin (Tylenol) 650 mg Q4H PRN PO 01/06/17 02:00 (Milk Of Magnesia Liq) 30 ml DAILY PRN PO 01/06/17 02:00 (Mag-Al Plus Susp Liq) 30 ml Q6H PRN PO 01/06/17 02:00 (Plavix) 75 mg DAILY PO 01/06/17 09:00 01/06/17 09:00 (Zyloprim) 100 mg DAILY PO 01/06/17 09:00 01/06/17 08:35 (Cozaar) 100 mg DAILY PO 01/06/17 09:00 01/06/17 08:36 (Pravachol) 40 mg HS PO 01/06/17 21:00 (Lopressor) 50 mg BID PO 01/06/17 09:00 01/06/17 09:00 (Tylenol) 500 mg Q6H PRN PO 01/06/17 02:15 (Rheumatrex) 7.5 mg Mo PO 01/10/17 09:00 (Imodium) 2 mg Q8H PRN PO 01/06/17 02:15 (Melatonin) 10 mg HS PO 01/06/17 21:00 (Zanaflex) 2 mg BID PO 01/06/17 09:00 01/06/17 09:00 (Nu-Iron) 150 mg DAILY PO 01/06/17 09:00 01/06/17 09:00 (Lactulose Liq) 30 ml BID PO 01/06/17 09:00 01/06/17 09:00 (Protonix) 20 mg DAILY PO 01/06/17 09:00 01/06/17 08:36 (Phazyme Chew) 125 mg Q8H PRN PO 01/06/17 02:30 (Zoloft) 100 mg DAILY PO 01/06/17 09:00 01/06/17 08:35 (Dulcolax Ec) 5 mg EVERY OTHER DAY PO 01/07/17 09:00 (Namenda) 10 mg BID PO 01/06/17 09:00 01/06/17 08:35 (Bentyl) 20 mg QID PO 01/06/17 09:00 01/06/17 12:48 (Plaquenil) 200 mg DAILY PO 01/06/17 09:00 01/06/17 08:35 ([place] 5-325 Mg) 1 tab BID PO 01/06/17 09:00 01/06/17 08:48 (Theragran) 1 tab DAILY PO 01/06/17 09:00 01/06/17 09:00 (Apresoline) 25 mg TID PO 01/06/17 09:00 01/06/17 12:48 (Ativan) 1 mg DAILY@0900,1400 PO 01/06/17 09:00 01/06/17 13:38 (Ativan) 2 mg HS PO 01/06/17 21:00 (Buspar) 5 mg QID PO 01/06/17 13:00 01/06/17 12:48 (Depakote Er) 250 mg DAILY PO 01/07/17 09:00 (Ismo) 40 mg DAILY PO 01/07/17 09:00 (Colace) 100 mg BID PO 01/06/17 21:00 Family History See above Social History See above Patient's Strengths (min. 2) In a monitored setting. Verbally fluent. Physical Exam Physical examination completed by hospitalist qa consultant. On my examination today, the patient appears to be in no acute physical distress. No motor abnormalities noted. Labs and vitals reviewed: Vital Signs Vital Signs Date Time Temp Pulse Resp B/P (MAP) Pulse Ox O2 Delivery O2 Flow Rate FiO2 01/06/17 12:16 51 129/60 (83) 01/06/17 03:05 97.7 20 95 01/05/17 14:00 Room Air Lab Results Test 01/05/17 14:30 01/05/17 17:00 White Blood Count 7.3 TH/MM3 Red Blood Count 3.18 MIL/MM3 Hemoglobin 11.1 GM/DL Hematocrit 33.1 % Mean Corpuscular Volume 104.3 FL Mean Corpuscular Hemoglobin 34.9 PG Mean Corpuscular Hemoglobin Concent 33.5 % Red Cell Distribution Width 13.6 % Platelet Count 192 TH/MM3 Mean Platelet Volume 7.6 FL Neutrophils (%) (Auto) 60.9 % Lymphocytes (%) (Auto) 28.7 % Monocytes (%) (Auto) 9.4 % Eosinophils (%) (Auto) 0.6 % Basophils (%) (Auto) 0.4 % Neutrophils # (Auto) 4.4 TH/MM3 Lymphocytes # (Auto) 2.1 TH/MM3 Monocytes # (Auto) 0.7 TH/MM3 Eosinophils # (Auto) 0.0 TH/MM3 Basophils # (Auto) 0.0 TH/MM3 CBC Comment DIFF FINAL Differential Comment Blood Urea Nitrogen 12 MG/DL Creatinine 1.21 MG/DL Random Glucose 98 MG/DL Total Protein 6.8 GM/DL Albumin 3.3 GM/DL Calcium Level 8.8 MG/DL Alkaline Phosphatase 58 U/L Aspartate Amino Transf (AST/SGOT) 22 U/L Alanine Aminotransferase (ALT/SGPT) 28 U/L Total Bilirubin 0.3 MG/DL Sodium Level 136 MEQ/L Potassium Level 3.6 MEQ/L Chloride Level 105 MEQ/L Carbon Dioxide Level 24.4 MEQ/L Anion Gap 7 MEQ/L Estimat Glomerular Filtration Rate 57 ML/MIN Lipase 210 U/L Urine Color LIGHT-YELLOW Urine Turbidity CLEAR Urine pH 6.0 Urine Specific [place] 1.006 Urine Protein NEG mg/dL Urine Glucose (UA) NEG mg/dL Urine Ketones NEG mg/dL Urine Occult Blood NEG Urine Nitrite NEG Urine Bilirubin NEG Urine Urobilinogen LESS THAN 2.0 MG/DL Urine Leukocyte Esterase NEG Urine RBC 1 /hpf Urine WBC LESS THAN 1 /hpf Microscopic Urinalysis Comment CULT NOT INDICATED Mental Status Examination Registration is 3 out of 3 and recall is 2 out of 3 at 3 minutes. He is oriented to person, month and location. He is able to name 2 items but struggles to repeat a phrase. He does not wish to do serial 7's and spells WORLD as DOLW. No motor abnormalities noted. Appearance Casually dressed. Fairly well groomed. Speech: Unremarkable Orientation: Person, Place, Date (Month) Memory: Unremarkable Thought Process: Circumstantial Thought Content: Unremarkable Language Unremarkable Fund of Knowledge Average Hallucination Type: None Attention and Concentration: Other (Fair) Suicidal Ideation: No Previous Suicide Attempts: No Homicidal Ideation: No Previous Homicide Attempts: No Insight: Fair Judgment: WNL (Fair) Affect: Other (Appropriate) Mood: Other (Somewhat depressed and anxious) Assessment & Plan Problem List: (1) Other mixed anxiety disorders ICD Codes: F41.3 - Other mixed anxiety disorders (2) Depressive disorder ICD Codes: F32.9 - Major depressive disorder, single episode, unspecified Assessment & Plan 86-year-old male with psychiatric history as detailed above who presented voluntarily for psychiatric evaluation. Patient reports that he is troubled chiefly with anxiety symptoms. These are mixed in nature with features of generalized anxiety and panic along with other symptoms suggestive of posttraumatic stress disorder from his history of service. Patient also reports some depressive symptoms, but these are secondary to his anxious complaints. Medication reconciliation form suggests a high degree of psychotropic polypharmacy, especially for a patient of his age, and one goal for the psychiatric hospital stay might be to reduce this polypharmacy. As a starting point, I note the patient is receiving a dose of doxepin at bedtime, and this may be causing his reported issues urinary retention and constipation in the morning. As a first step, I will discontinue this medication. Patient requires psychiatric hospitalization for medication adjustment and stabilization. Admit inpatient. Voluntary status. Consult to the hospitalist noted and appreciated. Appreciate their assistance in managing general medical medications. Check TSH, CBC to follow up anemia, BMP to follow-up GFR as well as hemoglobin A1c and lipid panel in the morning. Discontinue doxepin. Titrate Zoloft to 125 mg per day to target anxiety symptoms. Discontinue Paxil. Continue Namenda, BuSpar, melatonin and Ativan as ordered for now with plans to try to pare down his medication regimen further as able. Seizure and fall precautions. Vitals every shift. Counselor to see. Disposition planning. Estimated length of stay: 5-7 days. Discharge Planning Pending stabilization Request HC Surrog/Guard Advoc?: No Dejan Robertson MD Jan 06, 2017 13:51
[2017-01-06] MEDS ORDERED: PILL SPLITTER OTHER PRN (14:45)
[2017-01-06] MEDS: ACETAMINOPHEN 325 MG TAB PO PRN (18:27)
[2017-01-06] MEDS ORDERED: DOXEPIN PO SCH (21:00)
[2017-01-06] MEDS ORDERED: LACTULOSE SYRUP 20 GM/30 ML CUP PO SCH (21:00)
[2017-01-06] MEDS ORDERED: DOXEPIN HCL 10 MG CAP PO SCH (21:00)
[2017-01-06] MEDS ORDERED: MEMANTINE HCL 10 MG TAB PO SCH (21:00)
[2017-01-06] MEDS ORDERED: NON-FORMULARY DRUG (Simvastatin 20 MG) PO SCH (21:00)
[2017-01-06] MEDS ORDERED: METOPROLOL TARTRATE 50 MG TAB PO SCH (21:00)
[2017-01-06] MEDS: DOCUSATE SODIUM 100 MG CAP PO SCH (21:36)
[2017-01-06] MEDS: PRAVASTATIN SOD 40 MG TAB PO SCH (21:36)
[2017-01-06] MEDS: MELATONIN 5 MG TAB PO SCH (21:37)
[2017-01-06] MEDS: LORazepam 2 MG TAB PO SCH (21:37)
[2017-01-07 06:24] VITALS: BP 136/76; PULSE 58; RESP 18; TEMP 98.1
[2017-01-07] MEDS ORDERED: LOSARTAN 50 MG TAB PO SCH (09:00)
[2017-01-07] MEDS ORDERED: SERTRALINE HCL 100 MG TAB PO SCH (09:00)
[2017-01-07] MEDS ORDERED: ALLOPURINOL 100 MG TAB PO SCH (09:00)
[2017-01-07] MEDS ORDERED: HYDROXYCHLOROQUINE SULFATE 200 MG TAB PO SCH (09:00)
[2017-01-07] MEDS ORDERED: NON-FORMULARY DRUG (Multiple Vitamin 1 TAB) PO SCH (09:00)
[2017-01-07] MEDS ORDERED: NON-FORMULARY DRUG (Omeprazole 20 MG) PO SCH (09:00)
[2017-01-07] MEDS ORDERED: POLYSACCHARIDE IRON COMPLEX 150 MG CAP PO SCH (09:00)
[2017-01-07] MEDS ORDERED: CLOPIDOGREL 75 MG TAB PO SCH (09:00)
[2017-01-07] MEDS: ISOSORBIDE MONONITRATE 20 MG TAB PO SCH (09:10)
[2017-01-07] MEDS: MEMANTINE HCL 10 MG TAB PO SCH ×2 (09:10→21:08)
[2017-01-07] MEDS: DOCUSATE SODIUM 100 MG CAP PO SCH ×2 (09:11→21:07)
[2017-01-07 09:14] LABS: HEMATOCRIT 35.9 % (39.0-51.0); MEAN CELL VOLUME 104.2 FL (80.0-100.0); MEAN CORPUSCULAR HEMOGLOBIN 34.4 PG (27.0-34.0); PLATELET COUNT 220 TH/MM3 (150-450); RED BLOOD COUNT 3.45 MIL/MM3 (4.50-5.90); RED CELL DISTRIBUTION WIDTH 13.3 % (11.6-17.2); REVIEW FLAG FINAL; WHITE BLOOD COUNT 6.6 TH/MM3 (4.0-11.0)
[2017-01-07] MEDS: SERTRALINE HCL 50 MG TAB PO SCH (09:14)
[2017-01-07] MEDS: LOSARTAN 50 MG TAB PO SCH (09:18)
[2017-01-07] MEDS: POLYSACCHARIDE IRON COMPLEX 150 MG CAP PO SCH (09:19)
[2017-01-07] MEDS: busPIRone HCL 5 MG TAB PO SCH ×3 (09:19→18:46)
[2017-01-07] MEDS: ACETAMINOPHEN/HYDROcodone 325 MG/5 MG TAB PO SCH ×2 (09:19→21:08)
[2017-01-07] MEDS: CLOPIDOGREL 75 MG TAB PO SCH (09:20)
[2017-01-07] MEDS: DIVALPROEX SODIUM E.R. 250 MG TAB PO SCH (09:24)
[2017-01-07] MEDS: HYDROXYCHLOROQUINE SULFATE 200 MG TAB PO SCH (09:24)
[2017-01-07] MEDS: ALLOPURINOL 100 MG TAB PO SCH (09:25)
[2017-01-07] MEDS: DICYCLOMINE HCL 20 MG TAB PO SCH ×4 (09:25→21:08)
[2017-01-07] MEDS: METOPROLOL TARTRATE 50 MG TAB PO SCH ×2 (09:25→21:07)
[2017-01-07] MEDS: BISACODYL EC 5 MG TABEC PO SCH (09:27)
[2017-01-07] MEDS: PANTOPRAZOLE SOD 20 MG DELAYED RELEASE TAB PO SCH (09:27)
[2017-01-07] MEDS: hydrALAZINE HCL 25 MG TAB PO SCH ×3 (09:27→18:46)
[2017-01-07] MEDS: MULTIVITAMIN TAB PO SCH (09:27)
[2017-01-07] MEDS: LACTULOSE SYRUP 20 GM/30 ML CUP PO SCH ×2 (09:31→21:07)
[2017-01-07 09:51] LABS: ANION GAP 10 MEQ/L (5-15); BICARBONATE 24.4 MEQ/L (21.0-32.0); BLOOD UREA NITROGEN 13 MG/DL (7-18); CHLORIDE 105 MEQ/L (98-107); GLOMERULAR FILTRATION RATE 54 ML/MIN (>89); POTASSIUM 3.5 MEQ/L (3.5-5.1); SODIUM (NA) 139 MEQ/L (136-145)
[2017-01-07 10:02] LABS: HDL CHOLESTEROL 52.9 MG/DL (40.0-60.0); LDL CHOLESTEROL 14 MG/DL (0-99)
[2017-01-07] MEDS: LORazepam 1 MG TAB PO SCH ×2 (10:14→14:20)
--- NOTE | 2017-01-07 11:04 | HHI.PYPN ---
Subjective Remarks Patient seen and examined. Chart reviewed. Case discussed with nursing staff. On my exam, patient reports ongoing anxiety. This anxiety is chiefly generalized with some panicky symptoms. Mood fair. Denies SI/HI. Somewhat med seeking for Ativan. No reported issues with urinary retention or constipation overnight per patient. No other new physical complaints. Denies side effects from medications. Review of Systems Except as stated in HPI: all other systems reviewed are Neg Objective Alert: Yes [place]: Person, Place (at least) Mood: Anxious Affect: Appropriate Memory Intact: Comment (not assessed today) Hallucinations: Other (no AVH) Delusions: No Delusion Type: Other (no delusions) Suicidal: Ideation (Denies SI) Homicidal: Ideation (Denies HI) Insight/Judgment Poor Remarks No motor abnormalities noted. TP linear. Labs Test 01/07/17 08:22 White Blood Count 6.6 TH/MM3 Red Blood Count 3.45 MIL/MM3 Hemoglobin 11.9 GM/DL Hematocrit 35.9 % Mean Corpuscular Volume 104.2 FL Mean Corpuscular Hemoglobin 34.4 PG Mean Corpuscular Hemoglobin Concent 33.0 % Red Cell Distribution Width 13.3 % Platelet Count 220 TH/MM3 Mean Platelet Volume 7.9 FL Blood Urea Nitrogen 13 MG/DL Creatinine 1.26 MG/DL Random Glucose 138 MG/DL Calcium Level 9.0 MG/DL Sodium Level 139 MEQ/L Potassium Level 3.5 MEQ/L Chloride Level 105 MEQ/L Carbon Dioxide Level 24.4 MEQ/L Anion Gap 10 MEQ/L Estimat Glomerular Filtration Rate 54 ML/MIN Triglycerides Level 94 MG/DL Cholesterol Level 86 MG/DL LDL Cholesterol 14 MG/DL HDL Cholesterol 52.9 MG/DL Cholesterol/HDL Ratio 1.62 RATIO Thyroid Stimulating Hormone 3rd Gen 1.350 uIU/ML Labs reviewed. Anemia stable. GFR stable. TSH wnl. Vitals/IOs Vital Signs Date Time Temp Pulse Resp B/P (MAP) Pulse Ox O2 Delivery O2 Flow Rate FiO2 01/07/17 06:24 98.1 58 18 136/76 (96) 01/06/17 03:05 95 01/05/17 14:00 Room Air Intake and Output 01/07/17 01/07/17 01/08/17 08:00 16:00 00:00 Intake Total 480 ml Balance 480 ml Assessment & Plan Problem List: (1) Other mixed anxiety disorders ICD Codes: F41.3 - Other mixed anxiety disorders (2) Depressive disorder ICD Codes: F32.9 - Major depressive disorder, single episode, unspecified Assessment & Plan Titrate BuSpar to 10mg TID to target anxiety. Continue increased dose of Zoloft. Continue to monitor on the inpatient unit. Continue other medications and care as ordered. Justification for Cont. Inpt. Med changes Discharge Planning Anticipate discharge after the weekend Request HC Surrog/Guard Advoc?: No Dejan Robertson MD Jan 07, 2017 11:04
[2017-01-07 16:43] LABS: HEMOGLOBIN A1a 1.2 %; HEMOGLOBIN A1b 0.8 %; HEMOGLOBIN Ao 85.4 %; HEMOGLOBIN F 1.4 %; HEMOGLOBIN LA1C 2.1 %; HEMOGLOBIN P3 3.6 %
[2017-01-07] MEDS: MELATONIN 5 MG TAB PO SCH (21:07)
[2017-01-07] MEDS: LORazepam 2 MG TAB PO SCH (21:07)
[2017-01-07] MEDS: PRAVASTATIN SOD 40 MG TAB PO SCH (21:08)
[2017-01-08 06:29] VITALS: BP 140/72
[2017-01-08] MEDS ORDERED: BISACODYL EC 5 MG TABEC PO SCH (09:00)
[2017-01-08] MEDS: MEMANTINE HCL 10 MG TAB PO SCH ×2 (09:07→21:07)
[2017-01-08] MEDS: hydrALAZINE HCL 25 MG TAB PO SCH ×3 (09:07→17:59)
[2017-01-08] MEDS: DOCUSATE SODIUM 100 MG CAP PO SCH ×2 (09:08→21:08)
[2017-01-08] MEDS: ALLOPURINOL 100 MG TAB PO SCH (09:08)
[2017-01-08] MEDS: PANTOPRAZOLE SOD 20 MG DELAYED RELEASE TAB PO SCH (09:14)
[2017-01-08] MEDS: SERTRALINE HCL 50 MG TAB PO SCH (09:14)
[2017-01-08] MEDS: HYDROXYCHLOROQUINE SULFATE 200 MG TAB PO SCH (09:14)
[2017-01-08] MEDS: LORazepam 1 MG TAB PO SCH ×2 (09:14→14:08)
[2017-01-08] MEDS: MULTIVITAMIN TAB PO SCH (09:14)
[2017-01-08] MEDS: POLYSACCHARIDE IRON COMPLEX 150 MG CAP PO SCH (09:18)
[2017-01-08] MEDS: busPIRone HCL 5 MG TAB PO SCH ×3 (09:18→17:59)
[2017-01-08] MEDS: CLOPIDOGREL 75 MG TAB PO SCH (09:18)
[2017-01-08] MEDS: METOPROLOL TARTRATE 50 MG TAB PO SCH ×2 (09:18→21:08)
[2017-01-08] MEDS: ACETAMINOPHEN/HYDROcodone 325 MG/5 MG TAB PO SCH ×2 (09:19→21:07)
[2017-01-08] MEDS: DICYCLOMINE HCL 20 MG TAB PO SCH ×4 (09:24→21:07)
[2017-01-08] MEDS: LOSARTAN 50 MG TAB PO SCH (09:24)
[2017-01-08] MEDS: ISOSORBIDE MONONITRATE 20 MG TAB PO SCH (09:24)
[2017-01-08] MEDS: DIVALPROEX SODIUM E.R. 250 MG TAB PO SCH (09:24)
[2017-01-08] MEDS: LACTULOSE SYRUP 20 GM/30 ML CUP PO SCH ×2 (09:27→21:06)
[2017-01-08] MEDS: ACETAMINOPHEN 325 MG TAB PO PRN (15:48)
--- NOTE | 2017-01-08 16:24 | HHI.PYPN ---
Subjective Remarks Pt seen and discussed with staff. He remains anxious and RN reports that he was very worried that he was not getting medications. He c/o of poor sleep,due to "stress in my head". He denies medication side effets. No SI/HI Objective Alert: Yes [place]: Person, Place (at least) Mood: Anxious Affect: Appropriate Memory Intact: Comment (not assessed today) Hallucinations: Other (no AVH) Delusions: No Delusion Type: Other (no delusions) Suicidal: Ideation (Denies SI) Homicidal: Ideation (Denies HI) Insight/Judgment poor Vitals/IOs Vital Signs Date Time Temp Pulse Resp B/P (MAP) Pulse Ox O2 Delivery O2 Flow Rate FiO2 01/08/17 10:20 16 01/08/17 06:29 140/72 (94) 01/07/17 06:24 98.1 58 01/06/17 03:05 95 01/05/17 14:00 Room Air Intake and Output 01/08/17 01/08/17 01/09/17 08:00 16:00 00:00 Intake Total 120 ml Balance 120 ml Assessment & Plan Problem List: (1) Other mixed anxiety disorders ICD Codes: F41.3 - Other mixed anxiety disorders (2) Depressive disorder ICD Codes: F32.9 - Major depressive disorder, single episode, unspecified Assessment & Plan Continue current tx plan. Estimated LOS: days Justification for Cont. Inpt. risk of decomepnsation Request HC Surrog/Guard Advoc?: Valentine Ma MD Jan 08, 2017 16:24
[2017-01-08 18:00] VITALS: BP 138/60; PULSE 94; RESP 17; TEMP 98.1; O2SAT 96
[2017-01-08] MEDS: PRAVASTATIN SOD 40 MG TAB PO SCH (21:06)
[2017-01-08] MEDS: MELATONIN 5 MG TAB PO SCH (21:07)
[2017-01-08] MEDS: LORazepam 2 MG TAB PO SCH (21:08)
[2017-01-09] MEDS: ACETAMINOPHEN 325 MG TAB PO PRN (04:44)
[2017-01-09] MEDS: ISOSORBIDE MONONITRATE 20 MG TAB PO SCH (08:39)
[2017-01-09] MEDS: MULTIVITAMIN TAB PO SCH (08:39)
[2017-01-09] MEDS: DICYCLOMINE HCL 20 MG TAB PO SCH ×4 (08:39→22:16)
[2017-01-09] MEDS: ACETAMINOPHEN/HYDROcodone 325 MG/5 MG TAB PO SCH ×2 (08:40→22:17)
[2017-01-09] MEDS: HYDROXYCHLOROQUINE SULFATE 200 MG TAB PO SCH (08:43)
[2017-01-09] MEDS: METOPROLOL TARTRATE 50 MG TAB PO SCH ×2 (08:44→22:17)
[2017-01-09] MEDS: DOCUSATE SODIUM 100 MG CAP PO SCH ×2 (08:44→22:16)
[2017-01-09] MEDS: BISACODYL EC 5 MG TABEC PO SCH (08:44)
[2017-01-09] MEDS: hydrALAZINE HCL 25 MG TAB PO SCH ×3 (08:47→17:59)
[2017-01-09] MEDS: ALLOPURINOL 100 MG TAB PO SCH (08:47)
[2017-01-09] MEDS: LOSARTAN 50 MG TAB PO SCH (08:47)
[2017-01-09] MEDS: DIVALPROEX SODIUM E.R. 250 MG TAB PO SCH (08:47)
[2017-01-09] MEDS: busPIRone HCL 5 MG TAB PO SCH ×3 (08:49→18:04)
[2017-01-09] MEDS: CLOPIDOGREL 75 MG TAB PO SCH (08:52)
[2017-01-09] MEDS: POLYSACCHARIDE IRON COMPLEX 150 MG CAP PO SCH (08:52)
[2017-01-09] MEDS: MEMANTINE HCL 10 MG TAB PO SCH ×2 (08:52→22:28)
[2017-01-09] MEDS: SERTRALINE HCL 50 MG TAB PO SCH (08:52)
[2017-01-09] MEDS: PANTOPRAZOLE SOD 20 MG DELAYED RELEASE TAB PO SCH (08:52)
[2017-01-09] MEDS: LACTULOSE SYRUP 20 GM/30 ML CUP PO SCH ×2 (08:56→22:18)
[2017-01-09] MEDS: LORazepam 1 MG TAB PO SCH ×2 (09:19→13:55)
--- NOTE | 2017-01-09 10:22 | HHI.PYPN ---
Subjective Remarks Pt seen and discussed with staff. He remains anxious and depressed, but reports some improvement in mood today. Compliant with medications and denies medication side effects. He has been withdrawn and isolative on unit. No SI/HI Objective Alert: Yes [place]: Person, Place, Date, Situation Mood: Anxious, Depressed Affect: Restricted Memory Intact: Comment (intact) Hallucinations: Other (no AVH) Delusions: No Delusion Type: Other (no delusions) Suicidal: Ideation (Denies SI) Homicidal: Ideation (Denies HI) Insight/Judgment limited Vitals/IOs Vital Signs Date Time Temp Pulse Resp B/P (MAP) Pulse Ox O2 Delivery O2 Flow Rate FiO2 01/09/17 08:55 16 01/08/17 18:00 98.1 94 138/60 (86) 96 01/05/17 14:00 Room Air Intake and Output 01/09/17 01/09/17 01/10/17 08:00 16:00 00:00 Intake Total 0 ml Balance 0 ml Assessment & Plan Problem List: (1) Other mixed anxiety disorders ICD Codes: F41.3 - Other mixed anxiety disorders (2) Depressive disorder ICD Codes: F32.9 - Major depressive disorder, single episode, unspecified Assessment & Plan pt improving. Continue current tx plan. Estimated LOS: days Justification for Cont. Inpt. risk of decompensation Request HC Surrog/Guard Advoc?: Valentine Ma MD Jan 09, 2017 10:22
[2017-01-09] MEDS: MELATONIN 5 MG TAB PO SCH (22:16)
[2017-01-09] MEDS: PRAVASTATIN SOD 40 MG TAB PO SCH (22:17)
[2017-01-09] MEDS: LORazepam 2 MG TAB PO SCH (22:18)
[2017-01-10 06:52] VITALS: PULSE 58; RESP 17; TEMP 97.2; O2SAT 99
--- NOTE | 2017-01-10 07:03 | HHI.PYPN ---
Subjective Remarks Patient seen and examined. Chart reviewed. Case discussed with nursing staff. On my examination today, patient presents as somatically preoccupied. He complains chiefly of R hip pain (no reported recent trauma) and now urinary frequency. This may be in service of remaining in the hospital however, and patient remarks that "I can't go any place until I get well." Remains anxious and seems more dysphoric today. Ruminative and pessimistic, he tells me "doctor , I tell you I'm completely destroyed. I have nothing to live for!" Denies actual suicidal ideation however. Denies HI. Denies AVH. No reported side effects from medications. Review of Systems ROS Limitations: Poor Historian Except as stated in HPI: all other systems reviewed are Neg Objective Alert: Yes [employer]: Person, Place, Date, Situation Mood: Anxious, Depressed Affect: Restricted Memory Intact: Comment (remains intact) Hallucinations: Other (Denies AVH) Delusions: No Delusion Type: Other (None) Suicidal: Ideation (denies SI) Homicidal: Ideation (denies HI) Insight/Judgment Poor Remarks No motor abnormalities noted. Thought process perseverative on somatic complaints. Grooming and hygiene fair. Labs Labs reviewed. Vitals/IOs Vital Signs Date Time Temp Pulse Resp B/P (MAP) Pulse Ox O2 Delivery O2 Flow Rate FiO2 01/10/17 06:52 97.2 58 17 99 01/08/17 18:00 138/60 (86) Intake and Output 01/10/17 01/10/17 01/11/17 08:00 16:00 00:00 Intake Total 0 ml Balance 0 ml Assessment & Plan Problem List: (1) Other mixed anxiety disorders ICD Codes: F41.3 - Other mixed anxiety disorders (2) Depressive disorder ICD Codes: F32.9 - Major depressive disorder, single episode, unspecified Assessment & Plan As noted above, I do suspect a component of symptom exaggeration in service of remaining on the unit or perhaps to avoid returning to referring facility. Titrate Zoloft to 150mg daily to target anxiety and dysphoria. Continue other psychotropics as ordered. I will ask the hospitalist to return to assess the patient's many somatic complaints, and I will check a urinalysis for his complaint of urinary frequency. Continue to monitor on the inpatient unit. Continue other medications and care as ordered. Justification for Cont. Inpt. Medication changes. Discharge Planning Anticipate discharge by the middle of the week. Request HC Surrog/Guard Advoc?: No Dejan Robertson MD Jan 10, 2017 07:03
[2017-01-10] MEDS ORDERED: METHOTREXATE 2.5 MG TAB PO SCH ×2 (09:00)
[2017-01-10] MEDS: MEMANTINE HCL 10 MG TAB PO SCH ×2 (09:00→21:00)
[2017-01-10] MEDS: CLOPIDOGREL 75 MG TAB PO SCH (09:00)
[2017-01-10] MEDS: HYDROXYCHLOROQUINE SULFATE 200 MG TAB PO SCH (09:00)
[2017-01-10] MEDS: SERTRALINE HCL 50 MG TAB PO SCH (09:06)
[2017-01-10] MEDS: ACETAMINOPHEN/HYDROcodone 325 MG/5 MG TAB PO SCH ×2 (09:06→21:01)
[2017-01-10] MEDS: LACTULOSE SYRUP 20 GM/30 ML CUP PO SCH ×2 (09:06→21:00)
[2017-01-10] MEDS: ALLOPURINOL 100 MG TAB PO SCH (09:06)
[2017-01-10] MEDS: DIVALPROEX SODIUM E.R. 250 MG TAB PO SCH (09:06)
[2017-01-10] MEDS: MULTIVITAMIN TAB PO SCH (09:06)
[2017-01-10] MEDS: PANTOPRAZOLE SOD 20 MG DELAYED RELEASE TAB PO SCH (09:06)
[2017-01-10] MEDS: METOPROLOL TARTRATE 50 MG TAB PO SCH ×2 (09:06→21:04)
[2017-01-10] MEDS: DICYCLOMINE HCL 20 MG TAB PO SCH ×4 (09:07→21:01)
[2017-01-10] MEDS: POLYSACCHARIDE IRON COMPLEX 150 MG CAP PO SCH (09:07)
[2017-01-10] MEDS: hydrALAZINE HCL 25 MG TAB PO SCH ×3 (09:07→17:30)
[2017-01-10] MEDS: LOSARTAN 50 MG TAB PO SCH (09:07)
[2017-01-10] MEDS: ISOSORBIDE MONONITRATE 20 MG TAB PO SCH (09:08)
[2017-01-10] MEDS: busPIRone HCL 5 MG TAB PO SCH ×3 (09:08→17:30)
[2017-01-10] MEDS: DOCUSATE SODIUM 100 MG CAP PO SCH ×2 (09:08→21:01)
[2017-01-10] MEDS: LORazepam 1 MG TAB PO SCH ×2 (09:16→13:37)
[2017-01-10 12:04] VITALS: BP 113/61; PULSE 56
[2017-01-10 17:10] VITALS: BP 112/56; PULSE 58; RESP 18; TEMP 97.9; O2SAT 96
[2017-01-10] MEDS: LORazepam 2 MG TAB PO SCH (21:01)
[2017-01-10] MEDS: PRAVASTATIN SOD 40 MG TAB PO SCH (21:01)
[2017-01-10] MEDS: MELATONIN 5 MG TAB PO SCH (21:01)
[2017-01-11] MEDS: ACETAMINOPHEN 325 MG TAB PO PRN (05:18)
[2017-01-11 06:00] VITALS: BP_SYST 179; BP_SYST 197; BP_DIAS 77; BP_DIAS 88; PULSE 52; PULSE 54; RESP 18; TEMP 97.7; O2SAT 98
[2017-01-11 06:46] LABS: BACTERIA, URINE RARE /hpf; BLOOD, URINE NEG (NEG); CALCIUM OXALATE CRYSTALS,URINE OCC /hpf; COMMENT (UR) CULT NOT INDICATED; CULTURE IF INDICATED CULT NOT INDICATED; GLUCOSE,URINE NEG (NEG); KETONE, URINE NEG (NEG); MUCUS URINE FEW /lpf (OCC); NITRITE,URINE NEG (NEG); PH, URINE 6.5 (5.0-8.5); URINE COLOR LIGHT-YELLOW (YELLW/STRAW)
[2017-01-11] MEDS ORDERED: BUSP5TAB PO (08:31)
[2017-01-11] MEDS ORDERED: ZOLO50TA PO (08:31)
--- NOTE | 2017-01-11 08:32 | HHI.DS ---
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 Willoughby is 86 year-old male with a reported history of anxiety disorder who presented to the ED on a voluntary basis for psychiatric evaluation. Reviewing the electronic medical record, it appears this is patient's first visit to [facility]. Patient seen and examined with nurse. Chart reviewed. Case discussed with nursing staff. On my examination today, the patient complains chiefly of anxiety. He says that this anxiety disorder had its onset following his return from [place]. He has seen a psychiatrist in the past but is not currently under psychiatric care. He endorses generalized anxiety with episodes of what sound like panic with associated somatic symptoms such as chest pain. He also reports that his sleep is disturbed by nightmares of his experiences and work. He describes phenomenon that could represent daytime flashbacks to his experiences. He also reports that he awakens in the morning and is unable to move his bowels and bladder, and he thinks this may be related to his anxiousness overnight. Mood is somewhat depressed, although he does not identify this as his primary problem, nor does he describe a lot of depressive symptoms otherwise. He denies any suicidal or homicidal ideation. There is documentation that he took a quantity of Tylenol about a month ago, and when I asked the patient about this, he denies that it was a suicide attempt. Rather, he says that he was experiencing abdominal pain, as he sometimes does in the middle of the night when he is feeling especially anxious. He says that he pressed his nurses button but no one responded, and so he took a handful of Tylenol that he had in his room. No hypomanic or manic symptoms. No psychotic symptoms. The remainder of the psychiatric ROS is negative. Past psychiatric history: The patient reports a history of anxiety disorder. He does allude to a history of psychiatric admissions in the past but cannot provide any details about where or when. He denies a history of suicide attempts. Reviewing the medication reconciliation form, it appears patient's home psychotropics include Zoloft, Paxil, BuSpar, doxepin, Namenda and melatonin as well as scheduled Ativan. Family history: The patient denies a family history of mental illness. Chemical dependency history: The patient denies any abuse of drugs or alcohol. Social history: The patient reports that he lives in an assisted living facility. He is an [employer] having served in [place] and [place]. He is from his . He is originally from [place]. Tobacco Use In Past 30 Days: No Tobacco Past 30 Days Alcohol Use: Never Hospital Course Patient was admitted to a locked, inpatient psychiatric unit. A general medical consultation was obtained. Appropriate precautions were in place throughout patient's hospital stay. Patient was seen and examined on the unit by psychiatry and also visited by counselor. Psychotropic medications were adjusted. Patient tolerated medication changes well without side effects. There was no evidence of any suicidality or homicidality on the inpatient unit. The patient displayed a fairly dramatic and neurotic personality style on the unit. He exhibited a somatic preoccupation, particularly with his bowels and bladder, but would be observed a short time later ambulating about the unit in no acute distress. He was noted by staff and myself to be med seeking for Ativan. On the day of discharge: Patient seen and examined. Chart reviewed. Case discussed in treatment team. No significant behavioral disturbance noted overnight, although the patient remains quite dramatic and medication seeking per nursing staff. On my examination today, the patient denies suicidal or homicidal ideation, intent or plan on direct questioning. Affect remains somewhat dysphoric during the interview and he continues with previously reported somatic complaints, but he is noted later to be walking around the unit smiling and in no evident physical distress. Denies audiovisual hallucinations. No delusional material elicited. Denies side effects from medications. Weighing the acute, chronic, and protective factors and based on the available evidence, I magistrate judge to a reasonable degree of medical certainty that the patient is at low imminent risk of harm to self or others from a mental illness as defined under the [place] act and his level of function is adequate for outpatient care. With the benefit of inpatient observation, it seems clear that the patient has a degree of personality pathology, and this pathology will not be further ameliorated by a longer inpatient psychiatric hospital stay, although this may confer some degree of chronic risk going forward; he would benefit from outpatient psychiatric follow up. The patient has maximized benefit from this inpatient psychiatric hospital stay and, having been medically cleared by the hospitalist, he will be discharged back to his facility today with psychiatric follow-up as arranged by counselor. Patient is also to follow-up with primary care. Patient to return to the psychiatric emergency room for any concerning psychiatric symptoms. Results Blood Pressure 179 / 77 Vital Signs Date Time Temp Pulse Resp B/P (MAP) Pulse Ox O2 Delivery O2 Flow Rate FiO2 01/11/17 06:00 52 179/77 (111) 01/11/17 06:00 97.7 18 98 Laboratory Tests Test 01/11/17 06:00 Urine Leukocyte Esterase TRACE (NEG) Urine Calcium Oxalate Crystals OCC /hpf (NONE) Urine Bacteria RARE /hpf (NONE) Urine Mucus FEW /lpf (OCC) Laboratory Results Test 01/07/17 08:22 Cholesterol Level 86 MG/DL (120-200) HDL Cholesterol 52.9 MG/DL (40.0-60.0) Hemoglobin A1c 5.2 % (4.3-6.0) LDL Cholesterol 14 MG/DL (0-99) Triglycerides Level 94 MG/DL (42-150) Summary of Procedures None done Imaging Last Impressions Abdomen/Pelvis CT 01/05/17 2825 Signed Impressions: Service Date/Time: Thursday, January 05, 2017 16:01 - CONCLUSION: 1. 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 2. Bilateral renal cortical cysts. One of the cysts in the lower pole of the left kidney contains a fluid/fluid level possibly representing a hemorrhagic or proteinaceous component. 3. Bilateral inguinal and umbilical hernias all contain fat. 4. Postsurgical changes with findings of prior prostatectomy and pelvic sidewall node dissection. Surgical clips in the region of the adductor muscles of the right thigh. 5. Hepatic cysts . John Bergeron MD Pending results at discharge: No Medications # of Antipsychotic meds at D/C: 0 Approp Antipsych med options 1 - Minimum of three failed multiple trials of monotherapy. 2 - Documented plan to taper to monotherapy due to previous use of multiple meds OR cross-taper in progress at D/C. 3 - Documentation of augmentation of Clozapine. 4 - Justification other than those listed in allowable values 1-3, document here : Discharge Discharge Date: Jan 11, 2017 Discharge Diagnosis: (1) Adjustment disorder with mixed anxiety and depressed mood Diagnosis: Principal ICD Code: F43.23 - Adjustment disorder with mixed anxiety and depressed mood Mental Status Exam at Disch Patient is in hospital attire. Patient is well groomed. Patient is awake and alert and oriented person and hospital at least. No evidence of delirium. No motor abnormalities appreciated. Speech is within normal limits for rate, tone , volume. Mood is mildly dysphoric but not severely depressed. Affect is consistent with mood. Thought process linear. No delusions elicited. Denies audiovisual hallucinations and does not appear internally stimulated. Denies suicidal or homicidal ideation, intent, or plan and contracts for safety. Insight and judgment fair to poor. Pt Condition on Discharge: Stable Discharge Disposition: [facility]/CARE HOME Discharge Instructions Diet Instructions: Heart Healthy Diet Activities you can perform: Weight Bearing as Elidia Scheduled Appointment: as per counselor's notes New Medications: Buspirone (Buspirone) 5 Mg Tab 10 MG PO TID for Mental Health for 15 Days, TAB 1 Refill Sertraline (Zoloft) 50 Mg Tab 150 MG PO DAILY for Mental Health for 15 Days, #45 TAB 1 Refill Continued Medications: Acetaminophen (Tylenol Extra Strength) 500 Mg Tablet 500 MG PO Q6HR PRN for MILD PAIN/TEMP ELEVATION Allopurinol (Allopurinol) 100 Mg Tab 100 MG PO DAILY for Gout, #30 TAB [address] (Dulcolax DR) 5 Mg Tabdr 5 MG PO EVERY OTHER DAY, #30 TAB 0 Refills Clopidogrel (Plavix) 75 Mg Tab 75 MG PO DAILY for Blood Clot Prevention, #30 TAB 0 Refills Dicyclomine (Bentyl) 10 Mg Cap 20 MG PO QID for Bowel Management, CAP 0 Refills Divalproex ER (Depakote ER) 250 Mg Hossein 250 MG PO DAILY for Control Seizures, #30 TAB 0 Refills Hydralazine HCl (Hydralazine HCl) 25 Mg Tablet 25 MG PO TID for Blood Pressure Management, #90 TAB 0 Refills Hydrocodone-Acetaminophen ([place]) 5-325 mg Tab 1 TAB PO BID, TAB 0 Refills Hydroxychloroquine (Plaquenil) 200 Mg Tab 800 MG PO DAILY, #30 TAB 0 Refills Take with food Isosorbide Mononitrate (Isosorbide Mononitrate) 20 Mg Tab 40 MG PO DAILY for Prevent Chest Pain, #60 TAB 0 Refills Take 2 doses 7 hours apart. Lactulose Liq (Lactulose Liq) 10 Gm/15 Ml Soln 30 ML PO BID, ML 0 Refills Loperamide (Imodium A-D) 2 Mg Capsule 2 MG PO Q8HR PRN for DIARRHEA, #30 CAP 0 Refills Lorazepam (Ativan) 1 Mg Tab 1 MG PO BID for Anxiety, TAB 0 Refills Lorazepam (Ativan) 1 Mg Tab 2 MG PO HS for Anxiety, TAB 0 Refills Losartan (Cozaar) 100 Mg Tab 100 MG PO DAILY for Blood Pressure Management, #30 TAB 0 Refills Melatonin (Melatonin) 10 Mg Tablet 10 MG PO HS Memantine (Namenda) 10 Mg Tab 10 MG PO BID for Alzheimer Disease, #30 TAB 0 Refills Methotrexate (Methotrexate) 2.5 Mg Tab 7.5 MG PO TUESDAY, TAB 0 Refills Metoprolol Tartrate (Lopressor) 50 Mg Tab 50 MG PO BID, #60 TAB 0 Refills Multiple Vitamin (Multiple Vitamin) 1 Tab 1 TAB PO DAILY for Nutritional Supplement, TAB 0 Refills Omeprazole (Omeprazole) 20 Mg Tab 20 MG PO DAILY for Reflux, #30 TAB 0 Refills Polysaccharide Iron Complex (Nu-Iron 150) 150 Mg Iron Cap 150 MG PO DAILY for Nutritional Supplement, #30 CAP 0 Refills Simethicone (Gas-X) 125 Mg Tab.chew 125 MG PO Q8HR PRN for GAS RETENTION Simvastatin (Simvastatin) 20 Mg Tab 20 MG PO HS for Cholesterol Management, #30 TAB 0 Refills Tizanidine (Zanaflex) 2 Mg Cap 2 MG PO BID for Muscle Spasm, CAP 0 Refills Discontinued Medications: Buspirone (Buspirone) 5 Mg Tab 5 MG PO QID for Anxiety, TAB 0 Refills Doxepin Liq (Doxepin Liq) 10 Mg/Ml Conc 5 MG PO HS for Anxiety, ML 0 Refills Paroxetine (Paxil) 10 Mg Tab 10 MG PO DAILY, #30 TAB 0 Refills Sertraline (Zoloft) 100 Mg Tab 100 MG PO DAILY, #30 TAB 0 Refills Discharge Time <= 30 minutes Discharge/Advance Care Plan Health Problems: (1) Other mixed anxiety disorders (2) Depressive disorder Goals to promote your health * To prevent worsening of your condition and complications * To maintain your health at the optimal level Directions to meet your goals Take your medications as prescribed Follow your dietary instruction Follow activity as directed Keep your appointments as scheduled Take your immunizations and boosters as scheduled If your symptoms worsen call your PCP, if no PCP go to Urgent Care Center or Emergency Room For 08/11 questions related to your inpatient stay or results of tests pending at discharge, please contact Dr. Dejan Robertson at Smoking is Dangerous to Your Health. Avoid second hand smoking Dejan Robertson MD Jan 11, 2017 08:32
[2017-01-11] MEDS: PANTOPRAZOLE SOD 20 MG DELAYED RELEASE TAB PO SCH (08:50)
[2017-01-11] MEDS: hydrALAZINE HCL 25 MG TAB PO SCH ×2 (08:50→13:00)
[2017-01-11] MEDS: MULTIVITAMIN TAB PO SCH (08:50)
[2017-01-11] MEDS: ALLOPURINOL 100 MG TAB PO SCH (08:50)
[2017-01-11] MEDS: BISACODYL EC 5 MG TABEC PO SCH (08:50)
[2017-01-11] MEDS: busPIRone HCL 5 MG TAB PO SCH ×2 (08:50→13:00)
[2017-01-11] MEDS: CLOPIDOGREL 75 MG TAB PO SCH (08:50)
[2017-01-11] MEDS: METOPROLOL TARTRATE 50 MG TAB PO SCH (08:50)
[2017-01-11] MEDS: DIVALPROEX SODIUM E.R. 250 MG TAB PO SCH (08:51)
[2017-01-11] MEDS: POLYSACCHARIDE IRON COMPLEX 150 MG CAP PO SCH (08:51)
[2017-01-11] MEDS: DICYCLOMINE HCL 20 MG TAB PO SCH ×2 (08:51→13:00)
[2017-01-11] MEDS: SERTRALINE HCL 50 MG TAB PO SCH (08:51)
[2017-01-11] MEDS: HYDROXYCHLOROQUINE SULFATE 200 MG TAB PO SCH (08:51)
[2017-01-11] MEDS: ISOSORBIDE MONONITRATE 20 MG TAB PO SCH (08:51)
[2017-01-11] MEDS: ACETAMINOPHEN/HYDROcodone 325 MG/5 MG TAB PO SCH ×2 (08:51→11:51)
[2017-01-11] MEDS: LOSARTAN 50 MG TAB PO SCH (08:51)
[2017-01-11] MEDS: LACTULOSE SYRUP 20 GM/30 ML CUP PO SCH (08:52)
[2017-01-11] MEDS: LORazepam 1 MG TAB PO SCH ×2 (08:53→14:00)
[2017-01-11] MEDS: DOCUSATE SODIUM 100 MG CAP PO SCH (09:00)
[2017-01-11] MEDS: MEMANTINE HCL 10 MG TAB PO SCH (09:00)
--- NOTE | 2017-01-11 09:13 | HHI.PR ---
Subjective Remarks Hospitalist team has been reconsulted for medical management of hypertension and urinary frequency. Patient seen and examined, lying in bed with complaints of continued constipation. Patient also complaining of urinary incontinence and urinary frequency. Eating well. BP elevated today, rechecked and now WNL. Objective Vitals Vital Signs Date Time Temp Pulse Resp B/P (MAP) Pulse Ox O2 Delivery O2 Flow Rate FiO2 01/11/17 06:00 52 179/77 (111) 01/11/17 06:00 97.7 54 18 197/88 (124) 98 179/77 (111) 01/10/17 17:10 97.9 58 18 112/56 (74) 96 01/10/17 12:04 56 113/61 (78) I/O 01/10/17 01/10/17 01/10/17 01/11/17 01/11/17 01/11/17 07:00 15:00 23:00 07:00 15:00 23:00 Intake Total 0 ml 360 ml 600 ml Balance 0 ml 360 ml 600 ml Intake Oral 0 ml 360 ml 600 ml # Voids 1 1 2 Result Diagram: 01/07/1782101/07/17821 Imaging Last Impressions Abdomen/Pelvis CT 01/05/17 1405 Signed Impressions: Service Date/Time: Thursday, January 05, 2017 16:01 - CONCLUSION: 1. 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 2. Bilateral renal cortical cysts. One of the cysts in the lower pole of the left kidney contains a fluid/fluid level possibly representing a hemorrhagic or proteinaceous component. 3. Bilateral inguinal and umbilical hernias all contain fat. 4. Postsurgical changes with findings of prior prostatectomy and pelvic sidewall node dissection. Surgical clips in the region of the adductor muscles of the right thigh. 5. Hepatic cysts . John Bergeron MD Objective Remarks GENERAL: NAD, A&Ox1 HEAD: Normocephalic. NECK: Supple, trachea midline. No lymphadenopathy. EYES: No scleral icterus. No injection or drainage. CARDIOVASCULAR: Regular rate and rhythm without murmurs, gallops, or rubs. RESPIRATORY: Breath sounds equal bilaterally. No accessory muscle use. GASTROINTESTINAL: Abdomen soft, non-tender, nondistended. Umbilical hernia. MUSCULOSKELETAL: No cyanosis, or edema. SKIN: Warm and dry. NEURO: No focal neurological deficits. A/P Problem List: (1) Depression ICD Code: F32.9 - Major depressive disorder, single episode, unspecified Assessment and Plan 86 year old male admitted with depression General Anxiety Disorder Depression Management per Psychiatry Service Chronic Anemia No acute concerns, based on CBC Mild Rheumatoid Arthritis Continue Methotrexate at baseline dosing Constipation On Lactulose Colace twice a day GERD Continue PPI Gout Continue allopurinol HTN Elevated today. Rechecked and now WNL. No change to baseline treatments Follow BP intermittently Goal at age 86 is an average of 150mmHg systolic or less General Weakness PT Hyperlipidemia Continue Statin Follow as an outpatient Seizure Disorder No recent seizures Continue Depakote Follow clinically for any seizure activity Umbilical hernia Stable Follow as an outpatient Hx of Angina No active chest pain Continue daily Imdur Urinary frequency Urinary incontinence Follow out as outpatient. Stella Mosquera Jan 11, 2017 09:13
[2017-01-11 11:21] VITALS: BP 120/68; PULSE 64
== END 2017-01-11 14:58 | DRG 882 ==
LOC: NEPD 13:43 → NEDA 01-06 01:30 → H250 01-06 03:02
PROVIDERS: ADMIT Psychiatry & Neurology Psychiatry; ATTEND Psychiatry & Neurology Psychiatry
PROC: 05HY33Z Insertion of Infusion Device into Upper Vein, Percutaneous Approach (ICD-10-PCS; principal; 2017-01-05)
DX: F43.23 Adjustment disorder with mixed anxiety and depressed mood (principal); G40.909 Epilepsy, unspecified, not intractable, without status epilepticus; R45.851 Suicidal ideations; D64.9 Anemia, unspecified; M06.9 Rheumatoid arthritis, unspecified; I10 Essential (primary) hypertension; M10.9 Gout, unspecified; K21.9 Gastro-esophageal reflux disease without esophagitis; Z87.891 Personal history of nicotine dependence; K59.00 Constipation, unspecified; K57.30 Diverticulosis of large intestine without perforation or abscess without bleeding; K42.9 Umbilical hernia without obstruction or gangrene; I25.10 Atherosclerotic heart disease of native coronary artery without angina pectoris; E78.5 Hyperlipidemia, unspecified; R53.1 Weakness; M25.551 Pain in right hip; R35.0 Frequency of micturition; R32 Unspecified urinary incontinence
CPT/HCPCS: 74177; 80048; 80053; 80061; 81001; 83036; 83690; 84443; 85025; 85027; 99285; J8610; Q9967